=== PATIENT | female | born 1965 | race Caucasian/White ===

== ENCOUNTER 2020-05-08 16:02 | Outpatient (REF) | payer BC, SELFPAY ==
--- NOTE | 2020-05-08 13:35 | PAPFT_PTH ---
PATIENT: DESIREE DEL ANGEL LOC: [facility] U#:[id number] AGE/SX: 54/F ROOM: RE05/08/[address]: Tima Rae : 1965 BED: DIS: 05/08/2020 SPEC #: [id number] RECD: 05/12/20 12:55 STATUS: RACHEL REQ #: [id number] KAIA: 05/08/20 13:[address]: Tiam Rae DEPT: [facility] Cytology RECD BY: Sabiha Medina ENTERED: 05/12/20 12:55 SP TYPE: PAPFT OTHR DR: Miracle Judd Tissues: 1 - CX/ENDOCX FOR PAP SMEARS Procedures: PAP THIN PREP/[facility] Screening HPV DNA PROBE Comments: [id number]
== END 2020-05-08 16:22 ==
LOC: NCHCN 16:02
PROVIDERS: PCP Nurse Practitioner Family; Visit Provider Family Medicine
DX: Z12.4 Encounter for screening for malignant neoplasm of cervix (principal); Z11.51 Encounter for screening for human papillomavirus (HPV)
CPT/HCPCS: 88142; 87624